=== PATIENT | female | born 1975 | race Caucasian/White ===

== ENCOUNTER 2018-11-05 15:55 | Outpatient (CLI) | payer OTHER ==
--- NOTE | 2018-11-05 16:32 | MMO ---
Bilateral MAMMO Bilat Screen [facility]. CLINICAL HISTORY: Patient is 43 years old and is seen for screening. VIEWS: The views performed were: . MAMMOGRAM FINDINGS: The breasts are heterogeneously dense, which could obscure a lesion on mammography. Finding 1: There is a focal asymmetry seen in the CC view only seen in the outer region of the right breast. Finding 2: There is a round mass with circumscribed margins seen in the left breast at 6 o'clock. IMPRESSION: FINDING 1: FOCAL ASYMMETRY IN THE RIGHT BREAST REQUIRES ADDITIONAL EVALUATION. SPOT COMPRESSION IS RECOMMENDED. AN ULTRASOUND EXAM IS RECOMMENDED IF NEEDED. FINDING 2: MASS IN THE LEFT BREAST REQUIRES ADDITIONAL EVALUATION. SPOT COMPRESSION IS RECOMMENDED. AN ULTRASOUND EXAM IS RECOMMENDED IF NEEDED. THE RESULTS OF THIS EXAM WERE SENT TO THE PATIENT. ACR BI-RADS Category 0 - Incomplete: Need additional imaging evaluation. [facility] will notify the patient of the need for additional imaging services. MAMMOGRAPHY NOTE: 1. A negative mammogram report should not delay a biopsy if a dominant of clinically suspicious mass is present. 2. Approximately 10% to 15% of breast cancers are not detected by mammography. 3. Adenosis and dense breasts may obscure an underlying neoplasm.
== END 2018-11-05 15:56 | disposition home or self-care (01) ==
LOC: BICMAMMO 15:55
PROVIDERS: ATTEND Internal Medicine
DX: Z12.31 Encounter for screening mammogram for malignant neoplasm of breast (principal); N64.89 Other specified disorders of breast; N63.20 Unspecified lump in the left breast, unspecified quadrant
CPT/HCPCS: 77063; 77067

== ENCOUNTER 2018-11-12 13:56 | Outpatient (CLI) | payer OTHER ==
--- NOTE | 2018-11-12 14:45 | MMO ---
Bilateral MAMMO Bilat Diag [facility]. CLINICAL HISTORY: Patient is 43 years old and is seen for follow-up at short-interval from prior study. The patient has no family history of breast cancer. The patient has no personal history of cancer. VIEWS: The views performed were: bilateral craniocaudal spot compression with tomosynthesis; bilateral mediolateral with tomosynthesis; and left mediolateral oblique spot compression with tomosynthesis. FILMS COMPARED: The present examination has been compared to prior imaging studies performed at [facility] on 11/05/2018 and 11/12/2018. MAMMOGRAM FINDINGS: The breasts are heterogeneously dense, which could obscure a lesion on mammography. Finding 1: There is an oval mass with circumscribed margins seen in the upper-outer region of the right breast. The mass was shown to be a cyst on ultrasound. Finding 2: There is a round mass with circumscribed margins seen in the lower-inner region of the left breast. The mass was shown to be a cyst on ultrasound. There are no suspicious masses, suspicious calcifications, or new areas of architectural distortion. IMPRESSION: THERE IS NO MAMMOGRAPHIC EVIDENCE OF MALIGNANCY. A ROUTINE FOLLOW-UP MAMMOGRAM IN 1 YEAR IS RECOMMENDED. THE RESULTS OF THIS EXAM WERE SENT TO THE PATIENT. ACR BI-RADS Category 2 - Benign finding MAMMOGRAPHY NOTE: 1. A negative mammogram report should not delay a biopsy if a dominant of clinically suspicious mass is present. 2. Approximately 10% to 15% of breast cancers are not detected by mammography. 3. Adenosis and dense breasts may obscure an underlying neoplasm.
--- NOTE | 2018-11-12 15:30 | ULT ---
RIGHT BREAST ULTRASOUND AND LEFT BREAST ULTRASOUND: Date: 11/12/18 HISTORY: 43-year-old female with asymmetries seen on screening mammography in the upper outer aspect of the ri ght breast and the lower inner aspect of the left breast on screening mammography. COMPARISON: 11/12/18, 11/05/18. TECHNIQUE: Multiplanar Marx scale and color Doppler images were obtained in a targeted ultrasound of the upper o uter aspect of the right breast and the lower inner aspect of the left breast. FINDINGS: In the right breast, at the 10 o'clock position, approximately 2.0 cm from the nipple, there is a 1.1 cm well-circumscribed cyst. Small adjacent anechoic cysts are also seen. No suspicious shadowing or mass is seen in the right breast. This corresponds to the mammographic abnormality. In the 7 o'clock position of the left breast, there are two adjacent cysts. The largest measures 9.0 mm in greatest dimension. No suspicious shadowing or solid mass is seen. The larger cyst likely corre sponds to the mammographic abnormality. IMPRESSION: BIRADS Category 2 - Benign findings. Annual screening mammography recommended. POS: [place]
== END 2018-11-12 13:57 | disposition home or self-care (01) ==
LOC: BICMAMMO 13:56
PROVIDERS: ATTEND Internal Medicine
DX: R92.2 Inconclusive mammogram (principal)
CPT/HCPCS: 77066; G0279